=== PATIENT | male | born 1965 | race Caucasian/White ===

== ENCOUNTER 2023-11-28 08:53 | Emergency (ER) | payer OTHER ==
[~2023-11-28] VITALS: Ht 180.3 cm; Wt 82.0 kg
[~2023-11-28 08:53] MED LIST: NORCO1 TA1 PO
[2023-11-28 08:58] VITALS: BP 117/79
[2023-11-28 09:00] VITALS: BP 103/67
[2023-11-28] MEDS ORDERED: MEDDOSEPAK PO (09:28)
[2023-11-28 09:40] VITALS: BP 103/67
== END 2023-11-28 09:45 | disposition home or self-care (01) ==
LOC: ED 08:53
DX: T63.481A Toxic effect of venom of other arthropod, accidental (unintentional), initial encounter (principal); H93.8X1 Other specified disorders of right ear; E11.9 Type 2 diabetes mellitus without complications; F17.200 Nicotine dependence, unspecified, uncomplicated

== ENCOUNTER 2023-12-23 20:13 | Emergency (ER) | payer OTHER ==
[~2023-12-23] VITALS: Ht 180.3 cm; Wt 79.0 kg
[~2023-12-23 20:13] MED LIST changes: +MEDDOSEPAK PO
[2023-12-23] MEDS ORDERED: HYDROcodone 5 MG/Acetaminophen 325 MG/COMBO PO ONE (20:50)
[2023-12-23] MEDS ORDERED: KETOROLAC TROMETHAMINE 30 MG/ML SDV IM ONE (20:50)
[2023-12-23 21:01] VITALS: BP 110/65
[2023-12-23 22:30] VITALS: BP 110/65
== END 2023-12-23 22:30 | disposition home or self-care (01) ==
LOC: ED 20:13
DX: S20.211A Contusion of right front wall of thorax, initial encounter (principal); S80.11XA Contusion of right lower leg, initial encounter; S80.211A Abrasion, right knee, initial encounter; S20.311A Abrasion of right front wall of thorax, initial encounter; S86.911A Strain of unspecified muscle(s) and tendon(s) at lower leg level, right leg, initial encounter; I25.10 Atherosclerotic heart disease of native coronary artery without angina pectoris; E11.9 Type 2 diabetes mellitus without complications; W13.3XXA Fall through floor, initial encounter; Z95.1 Presence of aortocoronary bypass graft; Z88.5 Allergy status to narcotic agent